=== PATIENT | female | born 1950 | race Caucasian/White ===

== ENCOUNTER 2017-02-20 04:57 | Day surgery (SDC) | payer MEDICARE, OTHER ==
[2017-02-19 09:53] LABS: HEMATOCRIT 43.3 % (36.0-48.0); HEMOGLOBIN 14.1 g/dL (12.0-16.0)
--- NOTE | ~2017-02-20 | OP ---
Record Of Operation [facility] [address] [place]. [address] NAME: HERON HALL : 52 STATUS : [facility]#: [id number] AGE: 66 ADM/REG DATE : 02/20/17 MR#: [id number] REPORT SERV DATE: 02/22/17 DICTATED BY: TYRONE PELAEZ II DATE: 02/22/17 REPORT STATUS : Draft TRANSCRIBED BY: MODRod DATE: 02/22/17 DATE OF PROCEDURE: 02/20/2017 PREOPERATIVE DIAGNOSES: 1. Right lower extremity radiculopathy. 2. Stenosis at L4-L5. POSTOPERATIVE DIAGNOSES: 1. Right lower extremity radiculopathy. 2. Stenosis at L4-L5. PROCEDURE: 1. Lumbar laminectomy for decompression of the L4 and L5 nerve roots. 2. Use of the microscope and stereotactic spinal imaging. SURGEON: Dr. Tyrone Pelaez. FLUIDS: 1300 mL LR. ESTIMATED BLOOD LOSS: 25 mL. DRAINS: None. COMPLICATIONS: None. PREOPERATIVE HISTORY: This is a friendly 66-year-old female with multilevel severe degenerative disk disease. She does have back pain, but in her pain, it is manageable. She was more interested in decreasing the buttock and leg pains. We discussed the pros and cons of surgery. We discussed the rates of success as well as failure. We discussed that the alternative plan should she not do well short or alf with leg pain would be to consider a more complete facetectomy and fusion. DESCRIPTION OF PROCEDURE: After informed consent was obtained, the patient was brought to the operating room at her request and general anesthesia achieved. She was placed in the prone position and the back was prepped and draped in a sterile fashion. The stereotactic spinal pin was placed into the left iliac crest and the intraoperative CT scan completed. Stereotactic guidance was used throughout the case. The incision was now made on the right side at L4-L5 and the quadrant retractor placed. The microscope was now brought into place and under microscopic visualization, the laminectomy was initiated at L4-L5. The spinal laminar junction was now taken down and the central canal identified. The ligamentum flavum was now removed. The dura was then well decompressed centrally. Next, the lateral recesses were now decompressed in particular on the right. We removed primarily ligamentum flavum from the left lateral recess. On the right lateral recess, we removed portions of facet to adequately decompress the L5 and L4 nerve roots. Both nerve roots exhibited significant compression from the facet itself. The osteophytes were removed from the foramen to better decompress the L4 nerve root in the foraminal zone. Record Of Operation [facility] [address] [place]. [address] NAME: HERON HALL : 52 STATUS : [facility]#: [id number] AGE: 66 ADM/REG DATE : 02/20/17 MR#: [id number] REPORT SERV DATE: 02/22/17 DICTATED BY: TYRONE PELAEZ II DATE: 02/22/17 REPORT STATUS : Draft TRANSCRIBED BY: REMA DATE: 02/22/17 Next, the L5 nerve root was once again better decompressed with additional removal of facet. The area was now irrigated followed by confirmation of hemostasis, followed by standard closure and the patient was now extubated and transferred to PACU in stable condition. NILDA/REMA Tyrone Pelaez II, M.D. / [id number] CC: Angela Ramirez II, D.O.
[~2017-02-20 04:57] MED LIST: ALEVE220 MG PO; HALF81 PO; LIPITOR20 PO; NEUR300 PO; NORCO1 TA2 PO; NORCO1 TAB PO; PREV30 PO
== END 2017-02-20 13:14 | disposition home or self-care (01) ==
LOC: SDC 04:57
PROVIDERS: Orthopaedic Surgery
PROC: 01NB0ZZ Release Lumbar Nerve, Open Approach (ICD-10-PCS; principal; 2017-02-20 06:15)
DX: M48.06 Spinal stenosis, lumbar region (principal); M51.16 Intervertebral disc disorders with radiculopathy, lumbar region; K21.9 Gastro-esophageal reflux disease without esophagitis; K58.9 Irritable bowel syndrome, unspecified; M19.90 Unspecified osteoarthritis, unspecified site; Z88.0 Allergy status to penicillin; Z88.8 Allergy status to other drugs, medicaments and biological substances; Z91.040 Latex allergy status; Z79.891 Long term (current) use of opiate analgesic; Z79.899 Other long term (current) drug therapy; Z90.49 Acquired absence of other specified parts of digestive tract; Z98.890 Other specified postprocedural states; Z90.710 Acquired absence of both cervix and uterus; Z83.3 Family history of diabetes mellitus; Z82.49 Family history of ischemic heart disease and other diseases of the circulatory system; Z91.041 Radiographic dye allergy status
CPT/HCPCS: 85014; 85018; 88304; 88311; 93005; A9270-GY; J0690; J1030; J1580; J2250; J2270; J2405; J2710; J3010; J3370

== ENCOUNTER 2017-02-23 22:41 | Inpatient (IN) | payer MEDICARE, OTHER ==
--- NOTE | ~2017-02-23 | HP ---
History And Physical [place] [id number] [facility] [place]. [address] NAME: HERON HALL : 52 STATUS : ADM IN [facility]#: [id number] AGE: 66 ADM/REG DATE : 02/24/17 MR#: [id number] REPORT SERV DATE: 02/25/17 DICTATED BY: TYRONE PELAEZ II DATE: 02/25/17 REPORT STATUS : Draft TRANSCRIBED BY: MODRod DATE: 02/25/17 DATE OF ADMISSION: 02/23/2017 CHIEF COMPLAINT: Back pain, buttock pain, and inability to urinate. HISTORY OF PRESENT ILLNESS: A friendly female, who underwent L4-5 laminectomy this past Sunday. She was discharged home and was feeling great she said. Her leg pain was gone. She then began having increasing back pain with some radiation into the buttocks and thighs. She went to [facility] on Sunday. I discussed this with Dr. Underwood. He felt she was having more issues with pain control. She is in pain management. We discussed followup and a CT scan then performed there which did not show anything significant she reported. The patient then went home and had increased pain and went to the emergency room. Also, she had a catheter placed at [facility]. She then came to the [facility] ER and ultimately was admitted. PAST MEDICAL HISTORY: History of cholecystectomy, appendectomy, hysterectomy, , breast augmentation, and recent back surgery. MEDICATIONS: Please see the MAR. REVIEW OF SYSTEMS: Please see the ER triage sheet dated 02/23/2017. PHYSICAL EXAMINATION: GENERAL: Female, in mild distress. She is awake, alert, and oriented. NECK: Supple. CHEST: No stridor on inspiration or expiration. CARDIOVASCULAR: Regular rate and rhythm when I palpate the radial pulse. ABDOMEN: Soft. BACK: Dressing has been removed by the [facility] and then replaced with a small Band-Aid essentially. Her incision looks reasonable. There is no erythema, drainage, or fluctuance. NEUROLOGIC: She is 5/5 in the dorsiflexors and plantar flexors of her feet. She does have some mild straight leg raising, which is positive bilaterally. Sensory exam is normal. She does have a Wilson catheter in. Reflexes are unremarkable. MEDICAL DECISION MAKING: This is a 66-year-old female, who is status post recent L4-5 laminectomy, is now having increasing back pain with some concern for thecal sac compression given her urinary hesitation, which required a Wilson catheter to remain. We had discussed with the ER doctor his recommendation. He thought she could go home on Sunday and our office was to schedule an outpatient MRI that afternoon or Sunday. Her pain is worsened. Subsequently, I believe admission is warranted for the stat MRI. The MRI was ordered at the time of the emergency room admission at [facility]. We will await this result. I spent 55 minutes in the coordination of care of this patient as well as with evaluating her and History And Physical [address] [address] NAME: HERON HALL : 52 STATUS : ADM IN PAT#: [id number] AGE: 66 ADM/REG DATE : 02/24/17 MR#: [id number] REPORT SERV DATE: 02/25/17 DICTATED BY: TYRONE PELAEZ II DATE: 02/25/17 REPORT STATUS : Draft TRANSCRIBED BY: REMA DATE: 02/25/17 discussing with her daughter and nurse. NILDA/REMA Tyrone Pelaez II, M.D. / [id number] CC: Angela Ramirez II, D.O.
--- NOTE | ~2017-02-23 | OP ---
Record Of Operation [facility] [address] [place]. [address] NAME: HERON HALL : 52 STATUS : ADM IN PAT#: [id number] AGE: 66 ADM/REG DATE : 02/24/17 MR#: [id number] REPORT SERV DATE: 02/25/17 DICTATED BY: TYRONE PELAEZ II DATE: 02/25/17 REPORT STATUS : Draft TRANSCRIBED BY: MODRod DATE: 02/25/17 DATE OF PROCEDURE: 02/25/2017 PREOPERATIVE DIAGNOSES: 1. Recurrent stenosis L4-5. 2. Hematoma, epidural with cauda equina syndrome. POSTOPERATIVE DIAGNOSES: 1. Recurrent stenosis L4-5. 2. Hematoma, epidural with cauda equina syndrome. PROCEDURE: 1. Laminectomy L4-L5 (left-sided approach). 2. Evacuation of epidural hematoma. 3. Use of the microscope and stereotactic spinal imaging. FLUIDS: 600 mL LR. ESTIMATED BLOOD LOSS: 20 mL. DRAINS: One drain. COMPLICATIONS: None. ANTIBIOTIC: Preoperatively. PREOPERATIVE HISTORY: This is a friendly, 66-year-old female, who was doing very well for approximately 12 to 18 hours with resolved radiculopathy but her pain returns and also is having urinary hesitation. Please see the history and physical for further details. After informed consent was obtained, the patient was brought to the operating room at her request and general anesthesia achieved. She was placed in a prone position. The back was prepped and draped in a sterile fashion. The stereotactic spinal pin was placed on the right and the intraoperative CT scan completed. The stereotactic guidance was then used throughout the case. Overall, I felt that based upon the MRI that the patient also needed additional removal of facet, in particular on the left not the right. I felt the left-sided approach would also address the residual stenosis at L4-L5. The incision was made and the quadrant retractor placed. The microscope was brought into place. Under microscopic visualization, the epidural hematoma was identified. There was a fairly well-formed hematoma compressing the dura. The area was irrigated. The hematoma was evacuated. There was no evidence of CSF. At this point, the additional laminectomy was now performed with the high-speed bur and the Kerrison rongeurs and the curettes. Approximately 50% of the joint was now removed on the left side. This allowed additional decompression of the canal in the left lateral recess. Record Of Operation [facility] [address] [place]. [address] NAME: HERON HALL : 52 STATUS : ADM IN PAT#: [id number] AGE: 66 ADM/REG DATE : 02/24/17 MR#: [id number] REPORT SERV DATE: 02/25/17 DICTATED BY: TYRONE PELAEZ II DATE: 02/25/17 REPORT STATUS : Draft TRANSCRIBED BY: REMA DATE: 02/25/17 The area was now irrigated. There was still some mild cancellous bone bleeding, for which a deep drain was placed. At this point, standard closure was performed, and the sterile dressings applied. The patient was now pending extubation and transfer. The plan will be for overnight stay with the OLIVIER drain. We will allow her to mobilize and likely keep her Wilson catheter in for several more days. NILDA/REMA Tyrone Pelaez II, M.D. / [id number] CC: Angela Ramirez II, D.O.
[2017-02-24 01:25] LABS: BASOPHILS 0.3 %; BASOPHILS ABSOLUTE 0.02 10/3/uL (0.0-0.16); EOSINOPHILS 2.8 %; EOSINOPHILS ABSOLUTE 0.19 10/3/uL (0.0-0.53); HEMATOCRIT 40.7 % (36.0-48.0); HEMOGLOBIN 13.2 g/dL (12.0-16.0); IMMATURE GRANULOCYTES 0.3 %; IMMATURE GRANULOCYTES ABSOLUTE 0.02 10/3/uL (0.0-0.11); LYMPHOCYTES 20.8 %; MEAN CORPUS HGB CONC 32.4 g/dL (32.0-36.0); MEAN CORPUSCULAR HEMOGLOB 27.9 pg (26.0-34.0); MEAN PLATELET VOLUME 11.1 fL (9.2-13.0); MONOCYTES 7.4 %; NEUTROPHILS 68.4 %; NEUTROPHILS ABSOLUTE 4.61 10/3/uL (2.02-8.40); PLATELET COUNT 196 10/3/uL (150-400); RBC DISTRIBUTION WIDTH 14.1 % (12.0-16.0); RED CELL COUNT 4.73 10/6/uL (4.0-5.6); WHITE BLOOD CELLS 6.7 10/3/uL (4.5-10.5)
[2017-02-24 01:26] LABS: MANUAL DIFF NO %
[2017-02-24 01:31] LABS: ASCORBIC ACID (UR NOT ORDER) NEG (NEG); BILIRUBIN, URINE NEGATIVE (NEG); ER URINALYSIS TAT 0 Hrs 00 Mins; KETONE, URINE NEGATIVE (NEG); LEUKOCYTE ESTERASE(NOT OR NEG (NEG); NITRITE (URINE) NEG (NEG); WBC (NOT ORDERED) (RFLEX) 1 (0-5)
[2017-02-24 01:40] LABS: BUN (BLOOD UREA NITROGEN) 13 MG/DL (6-23); CALCIUM, SERUM 9.2 MG/DL (8.5-10.4); CHLORIDE, SERUM 102 MMOL/L (96-112); CO2 (CARBON DIOXIDE) 30 MMOL/L (24-34); CREATININE 0.93 MG/DL (0.55-1.02); GFR AFRICAN AMERICAN 75 ML/MIN (>=60); GFR NON AFRICAN AMERICAN 64 ML/MIN (>=60); GLUCOSE, SERUM 120 MG/DL (60-99); POTASSIUM, SERUM 4.1 MMOL/L (3.5-5.3); SGOT(AST) 74 U/L (5-40); SGPT(ALT) 101 U/L (5-65); SODIUM, SERUM 137 MMOL/L (135-148); TOTAL BILIRUBIN 0.5 MG/DL (0-1.2); TOTAL PROTEIN 7.1 G/DL (6.0-8.5)
[2017-02-24 01:42] LABS: A/G RATIO 0.9 (0.7-1.9); ALBUMIN 3.4 G/DL (3.5-5.0); ALKALINE PHOSPHATASE 160 U/L (45-117); GLOBULIN 3.7 G/DL (2.5-4.1)
[2017-02-24] MEDS ORDERED: DIL2TAB PO (03:58)
[2017-02-24] MEDS ORDERED: FLEX PO (03:58)
[2017-02-24] MEDS ORDERED: V5 PO (03:59)
== END 2017-02-26 10:45 | disposition home or self-care (01) | DRG 29 ==
LOC: ER 22:41 → 2SO 23:00 → 3SO 02-25 12:47
PROVIDERS: Emergency Medicine
PROC: 01NB0ZZ Release Lumbar Nerve, Open Approach (ICD-10-PCS; principal; 2017-02-23)
PROC: 00CT0ZZ Extirpation of Matter from Spinal Meninges, Open Approach (ICD-10-PCS; 2017-02-23)
DX: G83.4 Cauda equina syndrome (principal); G97.61 Postprocedural hematoma of a nervous system organ or structure following a nervous system procedure; M51.36 Other intervertebral disc degeneration, lumbar region; M48.06 Spinal stenosis, lumbar region; Y83.8 Other surgical procedures as the cause of abnormal reaction of the patient, or of later complication, without mention of misadventure at the time of the procedure
CPT/HCPCS: 72131; 72148; 74176; 80053; 81001; 85025; 87040; 87150; 88304; 88311; 96374; 96375; 96376; 99284; A9270-GY; J0690; J1170; J2250; J2405; J2710; J3010